=== PATIENT | male | born 1980 | race Caucasian/White ===

== ENCOUNTER 2020-11-12 07:54 | Outpatient (REF) | payer OTHER, SELFPAY ==
[2020-11-12 08:19] LABS: COVID-19 Test Positive (Negative)
== END 2020-11-12 07:55 | disposition home or self-care (01) ==
LOC: HO.LAB 07:54
PROVIDERS: Visit Provider Internal Medicine
DX: Z20.822 Contact with and (suspected) exposure to COVID-19 (principal)
CPT/HCPCS: 36415; 87635; C9803

== ENCOUNTER 2021-03-18 07:05 | Outpatient (REF) | payer OTHER, SELFPAY | END 2021-03-18 07:06 | disposition home or self-care (01) | LOC: HO.LAB 07:05 | PROVIDERS: PCP Internal Medicine; Visit Provider Internal Medicine | DX: Z20.822 Contact with and (suspected) exposure to COVID-19 (principal) | CPT/HCPCS: C9803; U0003; U0005 ==